=== PATIENT | male | born 1995 | race Caucasian/White ===

== ENCOUNTER 2016-12-12 08:39 | Emergency (ER) | payer OTHER, MEDICAID ==
[~2016-12-12] VITALS: Ht 170.2 cm; Wt 70.0 kg
[~2016-12-12 08:39] MED LIST: ALBUAER3 INH; CLON0.2T PO; CYPR4TAB PO; DEPA500T3 PO; DIPH25CA PO; FLUTI44I INH; LORA10TA PO; METH36 PO; MOME17I EACH NARE; MONT10TA2 PO; NUTR1LIQ PO; RISP1 PO; [UNRECOGNIZED DRUG - CODE] TOPICAL; [UNRECOGNIZED DRUG - CODE] XX; [UNRECOGNIZED DRUG - SUPPLY] XX
[2016-12-12 08:40] VITALS: BP 118/65; PULSE 58; RESP 16; TEMP 97.5; O2SAT 100
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
[2016-12-12] MEDS ORDERED: CLON0.1T PO (09:04)
[2016-12-12] MEDS ORDERED: ROBA500T PO (09:11)
[2016-12-12] MEDS ORDERED: IBUP800T23 PO (09:11)
[2016-12-12] MEDS ORDERED: ZIPR20 PO (09:13)
[2016-12-12] MEDS ORDERED: IBUPROFEN 800 MG TAB PO ONE (09:15)
[2016-12-12] MEDS ORDERED: METHOCARBAMOL 500 MG TAB PO ONE (09:15)
== END 2016-12-12 09:21 | disposition home or self-care (01) ==
LOC: NEPB 08:39
DX: S29.012A Strain of muscle and tendon of back wall of thorax, initial encounter (principal); R25.2 Cramp and spasm; V49.50XA Passenger injured in collision with unspecified motor vehicles in traffic accident, initial encounter
CPT/HCPCS: 99283

== ENCOUNTER → 2017-01-31 | Outpatient (CLI) | payer MEDICAID ==
[~2017-01-31] MED LIST changes: +CLON0.1T PO; -CLON0.2T PO; -DIPH25CA PO; +IBUP800T23 PO; -LORA10TA PO; -NUTR1LIQ PO; +ROBA500T PO; +ZIPR20 PO; -[UNRECOGNIZED DRUG - CODE] XX; -[UNRECOGNIZED DRUG - SUPPLY] XX
--- NOTE | 2017-01-31 12:23 | EKG ---
Date Performed: 01/31/2017 Time Performed: 11:20:26 PTAGE: 21 years EKG: Sinus rhythm BORDERLINE RIGHT AXIS DEVIATION INCOMPLETE RIGHT BUNDLE BRANCH BLOCK BORDERLINE ECG NO PREVIOUS TRACING DOCTOR: Shiva Hudson Interpretating Date/Time 01/31/2017 12:20:02
== END ==
LOC: HECH 11:08
PROVIDERS: ATTEND Psychiatry & Neurology Child & Adolescent Psychiatry
DX: F31.81 Bipolar II disorder (principal); F90.0 Attention-deficit hyperactivity disorder, predominantly inattentive type; F43.10 Post-traumatic stress disorder, unspecified; F41.8 Other specified anxiety disorders; I45.10 Unspecified right bundle-branch block
CPT/HCPCS: 93005

== ENCOUNTER 2017-05-02 11:57 | Emergency (ER) | payer MEDICAID ==
[~2017-05-02] VITALS: Ht 172.7 cm; Wt 70.0 kg
[2017-05-02 12:03] VITALS: BP 144/80; PULSE 54; RESP 16; TEMP 97.7; O2SAT 100
--- NOTE | 2017-05-02 12:16 | PD ---
Physical Exam Time Seen by Provider: 12:14 Narrative 22 y/o male presents with one month of drooling and the sensation of inability to control tongue function. on geodon and depakote for bipolar d/o. Vital signs reviewed. Seen at triage desk. Awaiting bed placement. Data Data Last Documented VS Vital Signs Date Time Temp Pulse Resp B/P Pulse Ox O2 Delivery O2 Flow Rate FiO2 05/02/17 12:03 97.7 54 16 144/[address] [facility] Medical Record Reviewed: Yes Supervised Visit with TATI: Edwin Willett May 02, 2017 12:16
[2017-05-02] MEDS ORDERED: DIVA250ER PO (14:10)
[2017-05-02] MEDS ORDERED: GEOD80CA PO (14:12)
[2017-05-02] MEDS ORDERED: diphenhydrAMINE HCL 50 MG/ML VIAL IV PUSH ONE (14:15)
--- NOTE | 2017-05-02 14:17 | PD ---
HPI Chief Complaint: Oral / Dental Pain or Problem Time Seen by Provider: 14:13 Travel History International Travel<30 days: No Contact w/Intl Traveler<30days: No Traveled to known affect area: No History of Present Illness HPI 22 -year-old male presents to the emergency department for evaluation of inability to control his tongue. He states his been happening intermittently over the past 6 weeks. He states that his tongue will start to roll and he'll drool. He states he does not have control over his tongue when this happened. He has no other symptoms when this occurs. Patient has history of bipolar disorder. He is currently on Geodon and Depakote. Patient denies any headache. No chest pain or shortness of breath. No abdominal pain. No nausea , vomiting, diarrhea. He is not currently on any other medications. Patient has no complaints at this time as he has no symptoms at this time. He states that last happened this morning when he was eating breakfast. PFSH Past Medical History ADHD: Yes Asthma: Yes Bipolar Disorder: Yes Anxiety: Yes Depression: Yes Cancer: No Diabetes: No Gastrointestinal Disorders: Yes Medical other: Yes (INTELLECTUAL DISABILITY) Psychiatric: Yes (ADHD, ANXIETY, BIPOLAR) Respiratory: Yes (ASTHMA) Migraines: No Seizures: No Thyroid Disease: No Ulcer: No ?: Not Past Surgical History Surgical History: No Previous Surgery Appendectomy: No Cholecystectomy: No Social History Alcohol Use: Yes (PT STATES HE HAS ABOUT 1 DRINK A FEW TIMES A MONTH) Tobacco Use: Yes (PT STATES HE SMOKES ABOUT 2 PACKS A WEEK) Substance Use: Yes (PT STATES HE SMOKES MARIJUANA A LOT) Allergies-Medications (Allergen,Severity, Reaction): Coded Allergies: No Known Allergies (Verified , 05/02/17) Reported Meds & Prescriptions Reported Meds & Active Scripts Active Robaxin (Methocarbamol) 500 Mg Tab 500 Mg PO QID PRN Singulair (Montelukast Sodium) 10 Mg Tab 10 Mg PO HS Reported Geodon (Ziprasidone) 80 Mg Cap 80 Mg PO DAILY Depakote ER (Divalproex Sodium) 250 Mg Briana 750 Mg PO DAILY Proair Hfa 8.5 GM Inh (Albuterol Sulfate) 90 Mcg/Act Aer 2 Puff INH Q4H PRN 108 mcg/actuation Flovent Hfa 10.6 GM Inh (Fluticasone Propionate) 44 Mcg/Act Inh 1 Puff INH BID Use daily at the same time. Nasonex Nasal [place] (Mometasone Furoate) 50 Mcg/Act Naspr 1 [place] EACH NARE DAILY Review of Systems Except as stated in HPI: all other systems reviewed are Neg Physical Exam Narrative GENERAL: Well-nourished, well-developed male patient, afebrile. SKIN: Focused skin assessment warm/dry. HEAD: Normocephalic. Atraumatic. EYES: No scleral icterus. No injection or drainage. NECK: Supple, trachea midline. No JVD or lymphadenopathy. CARDIOVASCULAR: Regular rate and rhythm without murmurs, gallops, or rubs. RESPIRATORY: Breath sounds equal bilaterally. No accessory muscle use. Lungs sounds are clear to auscultation. GASTROINTESTINAL: Abdomen soft, non-tender, nondistended. MUSCULOSKELETAL: No cyanosis, or edema. Bilateral upper and lower extremity strength 5/5. All extremities are neurovascularly intact. BACK: Nontender without obvious deformity. No CVA tenderness. NEUROLOGICAL: Awake and alert. Cranial nerves II through XII intact. Motor and sensory grossly within normal limits. Five out of 5 muscle strength in all muscle groups. Normal speech. Finger to nose is normal bilaterally. Heel-to- [place] is normal bilaterally. Data Data Last Documented VS Vital Signs Date Time Temp Pulse Resp B/P Pulse Ox O2 Delivery O2 Flow Rate FiO2 05/02/17 12:03 97.7 54 16 144/80 100 Room Air Orders Iv Access Insert/Monitor (05/02/17 14:09) Complete Blood Count With Diff (05/02/17 14:09) Comprehensive Metabolic Panel (05/02/17 14:09) Diphenhydramine Inj (Benadryl Inj) (05/02/17 14:15) Valproic Acid (Depakene) (05/02/17 14:10) Labs Laboratory Tests Test 05/02/17 14:23 White Blood Count 5.7 TH/MM3 Red Blood Count 4.38 MIL/MM3 Hemoglobin 14.4 GM/DL Hematocrit 44.0 % Mean Corpuscular Volume 100.5 FL Mean Corpuscular Hemoglobin 32.9 PG Mean Corpuscular Hemoglobin 32.8 % Concent Red Cell Distribution Width 13.2 % Platelet Count 184 TH/MM3 Mean Platelet Volume 10.1 FL Neutrophils (%) (Auto) 32.1 % Lymphocytes (%) (Auto) 55.9 % Monocytes (%) (Auto) 10.0 % Eosinophils (%) (Auto) 1.2 % Basophils (%) (Auto) 0.8 % Neutrophils # (Auto) 1.8 TH/MM3 Lymphocytes # (Auto) 3.2 TH/MM3 Monocytes # (Auto) 0.6 TH/MM3 Eosinophils # (Auto) 0.1 TH/MM3 Basophils # (Auto) 0.0 TH/MM3 CBC Comment DIFF FINAL Differential Comment Sodium Level 141 MEQ/L Potassium Level 4.1 MEQ/L Chloride Level 105 MEQ/L Carbon Dioxide Level 28.3 MEQ/L Anion Gap 8 MEQ/L Blood Urea Nitrogen 14 MG/DL Creatinine 0.73 MG/DL Estimat Glomerular Filtration 132 ML/MIN Rate Random Glucose 86 MG/DL Calcium Level 9.3 MG/DL Total Bilirubin 0.6 MG/DL Aspartate Amino Transf 13 U/L (AST/SGOT) Alanine Aminotransferase 28 U/L (ALT/SGPT) Alkaline Phosphatase 56 U/L Total Protein 7.7 GM/DL Albumin 4.1 GM/DL Valproic Acid (Depakene) Level 70 MCG/ML [facility] Medical Decision Making Medical Screen Exam Complete: Yes Emergency Medical Condition: Yes Medical Record Reviewed: Yes Differential Diagnosis Dystonia versus tardive dyskinesia versus reaction to Geodon versus electrolyte abnormality versus Depakote toxicity Narrative Course 22-year-old male presents to the emergency department for evaluation of intermittent tongue rolling and inability to talk that he has no control over that has been intermittent for 6 weeks. Patient is on Geodon and Depakote. Patient has no symptoms or complaints at this time. Neuro exam is unremarkable. Symptoms are most consistent with dystonic reaction to Geodon. Patient CBC, CMP, Depakote level are ordered and pending. Patient is given Benadryl 50 mg IV. CBC shows no acute abnormality. CMP is unremarkable. Depakote level is 70. Patient is instructed to stop Geodon. He is to immediately let his psychiatrist know that he is not able to take Geodon due to dystonic reaction. Patient will be discharged with a prescription for Benadryl. The patient was discharged in stable condition with instructions, including return instructions and follow up instructions. Diagnosis Primary Impression: Dystonia Referrals: Psychiatrist call for appointment Patient Instructions: Extrapyramidal Symptoms (ED), General Instructions Additional Instructions: Take Benadryl as directed as needed. Let your psychiatrist know of your symptoms. Stop Geodon and let your psychiatrist know immediately. Return to the emergency department for any acute, worsening of symptoms. Med/Other Pt SpecificInfo: Prescription(s) given Scripts Diphenhydramine HCl (Benadryl Allergy)25 Mg Cap50 Mg PO Q6HR PRN (EXTRA PYRAMIDAL SYMPTOMS) #28 Prov:Radha Doll 05/02/17 Disposition: 01 DISCHARGE HOME Condition: Stable Radha Doll May 02, 2017 14:17
[2017-05-02 15:06] LABS: AUTOMATED NEUTROPHIL # 1.8 TH/MM3 (1.8-7.7); BASOPHIL % 0.8 % (0.0-2.0); EOSINOPHIL # 0.1 TH/MM3 (0-0.4); EOSINOPHIL % 1.2 % (0.0-4.0); HEMO FLAGS DIFF FINAL; LYMPH % 55.9 % (9.0-44.0); LYMPHOCYTE # 3.2 TH/MM3 (1.0-4.8); MEAN CELL VOLUME 100.5 FL (80.0-100.0); MEAN CORPUSCULAR HEMOGLOBIN 32.9 PG (27.0-34.0); MEAN CORPUSCULAR HGB CONC 32.8 % (32.0-36.0); NEUT % 32.1 % (16.0-70.0); PLATELET COUNT 184 TH/MM3 (150-450); RED BLOOD COUNT 4.38 MIL/MM3 (4.50-5.90); RED CELL DISTRIBUTION WIDTH 13.2 % (11.6-17.2); WHITE BLOOD COUNT 5.7 TH/MM3 (4.0-11.0)
[2017-05-02 15:28] LABS: ALT (GPT) 28 U/L (12-78); ANION GAP 8 MEQ/L (5-15); AST (GOT) 13 U/L (15-37); BICARBONATE 28.3 MEQ/L (21.0-32.0); BLOOD UREA NITROGEN 14 MG/DL (7-18); CHLORIDE 105 MEQ/L (98-107); GLOMERULAR FILTRATION RATE 132 ML/MIN (>89); POTASSIUM 4.1 MEQ/L (3.5-5.1); SODIUM (NA) 141 MEQ/L (136-145)
[2017-05-02 15:29] LABS: ALKALINE PHOSPHATASE 56 U/L (45-117); TOTAL BILIRUBIN ADULT 0.6 MG/DL (0.2-1.0)
[2017-05-02] MEDS ORDERED: BENA25CA4 PO (16:05)
== END 2017-05-02 16:43 | disposition home or self-care (01) ==
LOC: NEPD 11:57
DX: G24.9 Dystonia, unspecified (principal)
CPT/HCPCS: 80053; 80164; 85025; 96374; 99284; J1200

== ENCOUNTER 2018-01-31 11:17 | Inpatient (IN) | payer MEDICAID, OTHER ==
[~2018-01-31] VITALS: Ht 172.7 cm; Wt 58.8 kg
[~2018-01-31 11:17] MED LIST changes: -CLON0.1T PO; -CYPR4TAB PO; -DEPA500T3 PO; +DIVA250T3 PO; -IBUP800T23 PO; -METH36 PO; -RISP1 PO; -ZIPR20 PO; -[UNRECOGNIZED DRUG - CODE] TOPICAL
[2018-01-31 11:32] VITALS: BP 167/101; PULSE 55; RESP 18; TEMP 98.4; O2SAT 98
--- NOTE | 2018-01-31 11:51 | PD ---
HPI . Depression Chief Complaint: Depression Time Seen by Provider: 11:39 Travel History International Travel<30 days: No Contact w/Intl Traveler<30days: No Traveled to known affect area: No History of Present Illness HPI This patient is brought in by his "polo coach" because of depression. History is obtained from both the patient and the polo coach. The patient has a history of mental illness. The polo coach reports that he has been recently noncompliant with his medications. He has been becoming noticeably more depressed over the last several days. The patient denies homicidal or suicidal ideation. Symptoms are exacerbated by the fact that he has not been taking his medications. Symptoms are moderate. They are getting progressively worse. PFSH Past Medical History ADHD: Yes Asthma: Yes Bipolar Disorder: Yes Anxiety: Yes Depression: Yes Cancer: No Diabetes: No Gastrointestinal Disorders: Yes Psychiatric: Yes (ADHD, ANXIETY, BIPOLAR) Respiratory: Yes (ASTHMA) Migraines: No Seizures: No Thyroid Disease: No Ulcer: No Past Surgical History Appendectomy: No Cholecystectomy: No Social History Alcohol Use: Yes (PT STATES HE HAS ABOUT 1 DRINK A FEW TIMES A MONTH) Tobacco Use: Yes (PT STATES HE SMOKES ABOUT 2 PACKS A WEEK) Substance Use: Yes (PT STATES HE SMOKES MARIJUANA A LOT) Allergies-Medications (Allergen,Severity, Reaction): Coded Allergies: ziprasidone (Unverified Allergy, Severe, Lethargy, sharon and mouth twisted , 05/28/17) Reported Meds & Prescriptions Reported Meds & Active Scripts Active Robaxin (Methocarbamol) 500 Mg Tab 500 Mg PO QID PRN Singulair (Montelukast Sodium) 10 Mg Tab 10 Mg PO HS Proair Hfa 8.5 GM Inh (Albuterol Sulfate) 90 Mcg/Act Aer 2 Puff INH Q4H PRN 108 mcg/actuation Flovent Hfa 10.6 GM Inh (Fluticasone Propionate) 44 Mcg/Act Inh 1 Puff INH BID Use daily at the same time. Nasonex Nasal [place] (Mometasone Furoate) 50 Mcg/Act Naspr 1 [place] EACH NARE DAILY Reported Divalproex ER (Divalproex Sodium) 250 Mg Briana 250 Mg PO DIRECTED [facility]. Review of Systems Except as stated in HPI: all other systems reviewed are Neg Psychiatric: Positive: Anxiety, Depression, No: Suicidal Ideations, Disorder of Thought, Homicidal Ideation Physical Exam Narrative GENERAL: Awake and alert and in no acute distress. SKIN: Warm and dry. HEAD: Normocephalic/atraumatic. EYES: Pupils are equal. Extraocular movements are intact. NECK: Normal range of motion. CARDIOVASCULAR: Regular rate and rhythm. RESPIRATORY: Nonlabored respirations. MUSCULOSKELETAL: Atraumatic. NEUROLOGICAL: Nonfocal. PSYCHIATRIC: The patient is tearful. His speech is pressured. He does make occasional eye contact with the examiner. Denies SI/HI. Data Data Last Documented VS Vital Signs Date Time Temp Pulse Resp B/P (MAP) Pulse Ox O2 Delivery O2 Flow Rate FiO2 01/31/18 11:32 98.4 55 18 167/101 (123) 98 Orders Orders Complete Blood Count With Diff (01/31/18 11:46) Comprehensive Metabolic Panel (01/31/18 11:46) Thyroid Stimulating Hormone (01/31/18 11:46) Psych Screen (01/31/18 11:46) Drug Screen, Random Urine (01/31/18 11:46) Valproic Acid (Depakene) (01/31/18 11:52) Labs Laboratory Tests Test 01/31/18 11:52 White Blood Count 6.3 TH/MM3 Red Blood Count 4.59 MIL/MM3 Hemoglobin 14.8 GM/DL Hematocrit 43.9 % Mean Corpuscular Volume 95.6 FL Mean Corpuscular Hemoglobin 32.3 PG Mean Corpuscular Hemoglobin Concent 33.8 % Red Cell Distribution Width 12.6 % Platelet Count 190 TH/MM3 Mean Platelet Volume 9.8 FL Neutrophils (%) (Auto) 57.9 % Lymphocytes (%) (Auto) 33.5 % Monocytes (%) (Auto) 7.8 % Eosinophils (%) (Auto) 0.1 % Basophils (%) (Auto) 0.7 % Neutrophils # (Auto) 3.7 TH/MM3 Lymphocytes # (Auto) 2.1 TH/MM3 Monocytes # (Auto) 0.5 TH/MM3 Eosinophils # (Auto) 0.0 TH/MM3 Basophils # (Auto) 0.0 TH/MM3 CBC Comment DIFF FINAL Differential Comment Blood Urea Nitrogen 18 MG/DL Creatinine 0.81 MG/DL Random Glucose 93 MG/DL Total Protein 8.2 GM/DL Albumin 4.5 GM/DL Calcium Level 9.4 MG/DL Alkaline Phosphatase 68 U/L Aspartate Amino Transf (AST/SGOT) 18 U/L Alanine Aminotransferase (ALT/SGPT) 27 U/L Total Bilirubin 1.3 MG/DL Sodium Level 139 MEQ/L Potassium Level 4.0 MEQ/L Chloride Level 105 MEQ/L Carbon Dioxide Level 26.3 MEQ/L Anion Gap 8 MEQ/L Estimat Glomerular Filtration Rate 117 ML/MIN Thyroid Stimulating Hormone 3rd Gen 0.515 uIU/ML Valproic Acid (Depakene) Level 21 MCG/ML MDM Medical Decision Making Medical Screen Exam Complete: Yes Emergency Medical Condition: Yes Differential Diagnosis Differential diagnosis of depression includes but is not limited to episodic depression, major depression, bipolar disorder, PTSD Narrative Course This patient presents voluntarily for the evaluation of depression. He has a history of mental illness and has been recently noncompliant with medications. He has become increasingly depressed over the last several days. He denies homicidal or suicidal ideation. CBC & BMP Diagram 01/31/18 11:52 Total Protein 8.2, Albumin 4.5, Calcium Level 9.4, Alkaline Phosphatase 68, Aspartate Amino Transf (AST/SGOT) 18, Alanine Aminotransferase (ALT/SGPT) 27, Total Bilirubin 1.3 H Valproic acid level is low at 21 Diagnosis Primary Impression: Medical clearance for psychiatric admission Patient Instructions: General Instructions Condition: Stable Lashonda Mendoza MD Jan 31, 2018 11:51
[2018-01-31 12:27] LABS: AUTOMATED NEUTROPHIL # 3.7 TH/MM3 (1.8-7.7); BASOPHIL % 0.7 % (0.0-2.0); EOSINOPHIL % 0.1 % (0.0-4.0); HEMATOCRIT 43.9 % (39.0-51.0); HEMOGLOBIN 14.8 GM/DL (13.0-17.0); LYMPH % 33.5 % (9.0-44.0); LYMPHOCYTE # 2.1 TH/MM3 (1.0-4.8); MEAN CELL VOLUME 95.6 FL (80.0-100.0); MEAN CORPUSCULAR HEMOGLOBIN 32.3 PG (27.0-34.0); MEAN CORPUSCULAR HGB CONC 33.8 % (32.0-36.0); MEAN PLATELET VOLUME 9.8 FL (7.0-11.0); MONO % 7.8 % (0.0-8.0); MONOCYTE # 0.5 TH/MM3 (0-0.9); NEUT % 57.9 % (16.0-70.0); PLATELET COUNT 190 TH/MM3 (150-450); RED BLOOD COUNT 4.59 MIL/MM3 (4.50-5.90); RED CELL DISTRIBUTION WIDTH 12.6 % (11.6-17.2); WHITE BLOOD COUNT 6.3 TH/MM3 (4.0-11.0)
[2018-01-31 12:39] LABS: ALBUMIN 4.5 GM/DL (3.4-5.0); ALT (GPT) 27 U/L (12-78); AST (GOT) 18 U/L (15-37); BICARBONATE 26.3 MEQ/L (21.0-32.0); BLOOD UREA NITROGEN 18 MG/DL (7-18); CALCIUM 9.4 MG/DL (8.5-10.1); CHLORIDE 105 MEQ/L (98-107); CREATININE 0.81 MG/DL (0.60-1.30); GLOMERULAR FILTRATION RATE 117 ML/MIN (>89); GLUCOSE,RANDOM 93 MG/DL (74-106); SODIUM (NA) 139 MEQ/L (136-145)
[2018-01-31 12:41] LABS: TOTAL BILIRUBIN ADULT 1.3 MG/DL (0.2-1.0); TOTAL PROTEIN 8.2 GM/DL (6.4-8.2)
[2018-01-31 12:49] LABS: ALKALINE PHOSPHATASE 68 U/L (45-117)
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
[2018-01-31 15:54] VITALS: BP 141/77; PULSE 59; RESP 16; TEMP 98.8; O2SAT 99
[2018-01-31] MEDS ORDERED: MAGNESIUM HYDROXIDE SUSP 30 ML CUP PO PRN (16:30)
[2018-01-31] MEDS: NICOTINE 21 MG/24 HR PATCH T-DERMAL SCH (16:30)
[2018-01-31] MEDS ORDERED: hydrOXYzine HCL 50 MG TAB PO PRN (16:30)
[2018-01-31] MEDS ORDERED: ALUMINUM/MAGNESIUM/SIMETH 30 ML CUP PO PRN (16:30)
[2018-01-31] MEDS ORDERED: ACETAMINOPHEN 325 MG TAB PO PRN (16:30)
[2018-01-31] MEDS ORDERED: DIVA250ER PO (16:32)
[2018-01-31 17:00] VITALS: BP 130/71; PULSE 72; RESP 18; TEMP 98.1; O2SAT 97
[2018-01-31] MEDS ORDERED: DIVALPROEX SODIUM E.R. 250 MG TAB PO SCH (20:00)
[2018-02-01 06:10] VITALS: BP 100/58; PULSE 62; RESP 16; TEMP 97.9; O2SAT 97
[2018-02-01] MEDS: REMOVE OLD PATCH T-DERMAL SCH (09:00)
[2018-02-01] MEDS ORDERED: DIVALPROEX SODIUM E.R. 250 MG TAB PO SCH (09:00)
[2018-02-01] MEDS: NICOTINE 21 MG/24 HR PATCH T-DERMAL SCH (09:15)
[2018-02-01] MEDS ORDERED: LORazepam 1 MG TAB PO PRN (14:00)
[2018-02-01] MEDS ORDERED: diphenhydrAMINE HCL 50 MG CAP PO PRN (14:00)
[2018-02-01] MEDS ORDERED: BENZTROPINE MESYLATE 1 MG TAB PO PRN (14:00)
[2018-02-01] MEDS ORDERED: BENZTROPINE MESYLATE 2 MG/2 ML VIAL IM PRN (14:00)
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
[2018-02-01 14:26] LABS: CHOLESTEROL 108 MG/DL (120-200); TRIGLYCERIDES 40 MG/DL (42-150)
[2018-02-01 14:28] LABS: CHOLESTEROL/ HDL RATIO 2.13 RATIO; HDL CHOLESTEROL 50.6 MG/DL (40.0-60.0); LDL CHOLESTEROL 49 MG/DL (0-99)
[2018-02-01] MEDS: BENZTROPINE MESYLATE 1 MG TAB PO SCH (18:00)
[2018-02-01] MEDS: LURASIDONE 40 MG TAB PO SCH (18:00)
[2018-02-01 18:15] VITALS: BP 116/70; PULSE 67; RESP 16; TEMP 97.3; O2SAT 99
[2018-02-02 05:39] VITALS: BP 104/63; PULSE 60; RESP 16; TEMP 97.9; O2SAT 98
[2018-02-02] MEDS: REMOVE OLD PATCH T-DERMAL SCH (08:35)
--- NOTE | 2018-02-02 10:37 | HHI.PYPN ---
Subjective Chief Complaint: Depression Remarks Patient was seen and case discussed with nursing. Patient remains tearful, guilt-ridden and withdrawn. He is minimally interactive during the interview. He is deep into his own thoughts looking away. He denies he had suicidal ideation before admission or having any thoughts today. Seclusive to self. Mental Status Examination Appearance: Appropriate Consciousness: Alert Orientation: x4 Motor Activity: Normal gait Speech: Unremarkable Language: Adequate Fund of Knowledge: Adequate Attention and Concentration: Adequate Memory: Unremarkable Mood: Other (Depressed) Affect: Other (Tearful and dysphoric) Thought Process & Associations: Circumstantial Thought Content: Appropriate Hallucination Type: None Delusion Type: None Suicidal Ideation: No Suicidal Plan: No Suicidal Intention: No Homicidal Ideation: No Homicidal Plan: No Homicidal Intention: No Insight: Fair Judgment: Impulsive Results Labs Test 02/01/18 13:51 Triglycerides Level 40 MG/DL Cholesterol Level 108 MG/DL LDL Cholesterol 49 MG/DL HDL Cholesterol 50.6 MG/DL Cholesterol/HDL Ratio 2.13 RATIO Vitals/IOs Vital Signs Date Time Temp Pulse Resp B/P (MAP) Pulse Ox O2 Delivery O2 Flow Rate FiO2 02/02/18 05:39 97.9 60 16 104/63 (77) 98 01/31/18 15:54 Room Air Assessment & Plan Problem List: (1) Bipolar affective disorder, depressed ICD Codes: F31.30 - Bipolar disorder, current episode depressed, mild or moderate severity, unspecified (2) Borderline intellectual functioning ICD Codes: R41.83 - Borderline intellectual functioning Assessment & Plan Continue current treatment plan Justification for Cont. Inpt. Patient would decompensate in a less restrictive setting Request HC Surrog/Guard Advoc?: No Problem Qualifiers (1) Bipolar affective disorder, depressed: Qualified Codes: F31.32 - Bipolar disorder, current episode depressed, moderate Nomi Torres DO Feb 02, 2018 10:36
[2018-02-02] MEDS: NICOTINE 21 MG/24 HR PATCH T-DERMAL PRN (13:31)
[2018-02-02] MEDS: LURASIDONE 40 MG TAB PO SCH (17:14)
[2018-02-02] MEDS: BENZTROPINE MESYLATE 1 MG TAB PO SCH (17:14)
[2018-02-02 18:22] VITALS: BP 112/66; PULSE 60; RESP 16; TEMP 98.2; O2SAT 99
--- NOTE | 2018-02-03 00:43 | EKG ---
Date Performed: 02/01/2018 Time Performed: 14:04:58 PTAGE: 22 years EKG: SINUS BRADYCARDIA MARKED RIGHT AXIS DEVIATION INCOMPLETE RIGHT BUNDLE BRANCH BLOCK ABNORMAL ECG PREVIOUS TRACING : 01/31/2017 11.20 Compared to previous tracing, now bradycardic DOCTOR: Brian Belcher Interpretating Date/Time 02/03/2018 00:41:00
[2018-02-03 06:34] VITALS: BP 110/56; PULSE 48; RESP 16; TEMP 98.3; O2SAT 97
[2018-02-03 08:57] VITALS: PULSE 70
[2018-02-03] MEDS: REMOVE OLD PATCH T-DERMAL SCH (09:00)
[2018-02-03] MEDS: NICOTINE 21 MG/24 HR PATCH T-DERMAL PRN (10:15)
--- NOTE | 2018-02-03 15:05 | HHI.PYPN ---
Subjective Chief Complaint: Depression Remarks Patient seen and examined with nurse. Chart reviewed. Case discussed with nursing staff. No behavioral issues noted. Case discussed with counselor. On my examination today, patient's affect is considerably brighter versus my previous contact with him. He describes his mood as subjectively improved. He denies any suicidal or homicidal ideation. Denies any audiovisual hallucinations. Decreased guilty ruminations. Denies side effects from medications. He would like to titrate the Latuda. No physical complaints. Review of Systems Except as stated in HPI: all other systems reviewed are Neg Mental Status Examination Appearance: Appropriate Consciousness: Alert Orientation: x4 Motor Activity: Normal gait, Other (No motor abnormalities noted. No hand tremor, no dystonia, no dyskinesia.) Speech: Unremarkable Language: Adequate Fund of Knowledge: Adequate Attention and Concentration: Adequate Memory: Unremarkable Mood: Other (Mood is improving) Affect: Appropriate Thought Process & Associations: Circumstantial Thought Content: Appropriate Hallucination Type: None Delusion Type: None Suicidal Ideation: No Suicidal Plan: No Suicidal Intention: No Homicidal Ideation: No Homicidal Plan: No Homicidal Intention: No Insight: Fair Judgment: Impulsive Results Labs Labs reviewed. Hemoglobin A1c is pending. 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 Titrate Latuda to 60 mg for further mood stabilization. Continue to monitor on inpatient unit. Continue other medications and care as ordered. Justification for Cont. Inpt. Med changes. Risk for decompensation in less restrictive environment. Discharge Planning Pending psychiatric stabilization. Request HC Surrog/Guard Advoc?: No Problem Qualifiers (1) Bipolar affective disorder, depressed: Qualified Codes: F31.32 - Bipolar disorder, current episode depressed, moderate Shiva Barriga MD Feb 03, 2018 15:05
[2018-02-03] MEDS: BENZTROPINE MESYLATE 1 MG TAB PO SCH (16:45)
[2018-02-03] MEDS: LURASIDONE 40 MG TAB PO SCH ×3 (16:45→17:12)
[2018-02-03 16:54] LABS: HEMOGLOBIN A1C 5.4 % (4.3-6.0)
[2018-02-03 17:25] VITALS: BP 121/57; PULSE 61; RESP 16; TEMP 98.4; O2SAT 100
[2018-02-04 05:47] VITALS: BP 104/64; PULSE 60; RESP 16; TEMP 97.9; O2SAT 98
[2018-02-04] MEDS: REMOVE OLD PATCH T-DERMAL SCH (09:00)
--- NOTE | 2018-02-04 09:33 | PD.TTN ---
Patient Problems 1. Discharge planning 2. Medication compliance 3. Knowledge deficit 4. Lack of coping skills Progress Toward Goals Provider Present: Dr. Janny Barriga Provider Input: 02/04/18 - Counselor will contact patient's support mentor, Taurus, from [facility], , to discuss disposition. Psychiatric Counselors Present: MERVAT Mcclendon Psych Therapist Input: 02/04/18 - Counselor will contact Taurus for disposition. Group Spec/RT/OT/HANSEN Present: Parminder Gill OT Group Spec/RT/OT/HANSEN Input: 02/04/18 - Patient attends groups and is appropriate. Discharge Plan [facility] 02/04/18 - Patient will be discharged home when stable and will follow up at [facility] and with Taurus at [facility]. Documentation Scribe: MERVAT Mcclendon Date Resolved: Feb 04, 2018 Sarah Yepez Feb 04, 2018 09:33
[2018-02-04] MEDS: NICOTINE 21 MG/24 HR PATCH T-DERMAL PRN (12:45)
--- NOTE | 2018-02-04 14:08 | HHI.PYPN ---
Subjective Chief Complaint: Depression Remarks Patient seen and examined with nurse. Chart reviewed. Case discussed with nursing staff. No behavioral issues noted overnight although patient was apparently somewhat tearful earlier today. Case discussed in treatment team. Counselor reports that the patient has a sort of life enrichment manager on an outpatient basis who will be visiting the patient this evening to give us her sense of patient's progress. On my examination today, patient is in good spirits. He notes that he is "not worrying about things that do not matter." Mood is improved. He denies AVH. No SI or HI. Denies side effects from medications. No physical complaints. Review of Systems Except as stated in HPI: all other systems reviewed are Neg Mental Status Examination Appearance: Appropriate Consciousness: Alert Orientation: x4 Motor Activity: Normal gait, Other (No abnormal motor movements noted) Speech: Unremarkable Language: Adequate Fund of Knowledge: Adequate Attention and Concentration: Adequate Memory: Unremarkable Mood: Appropriate, Good Affect: Appropriate Thought Process & Associations: Intact Thought Content: Appropriate Hallucination Type: None Delusion Type: None Suicidal Ideation: No Suicidal Plan: No Suicidal Intention: No Homicidal Ideation: No Homicidal Plan: No Homicidal Intention: No Mental Status Exam Remarks Insight and judgment are fair Results Labs Labs reviewed. 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 Patient seems to be improving with this medication. Continue to monitor on the inpatient unit. Continue other medications and care as ordered. Justification for Cont. Inpt. Med change Discharge Planning Possible discharge tomorrow Request HC Surrog/Guard Advoc?: No Problem Qualifiers (1) Bipolar affective disorder, depressed: Qualified Codes: F31.32 - Bipolar disorder, current episode depressed, moderate Shiva Barriga MD Feb 04, 2018 14:08
[2018-02-04 15:20] VITALS: BP 107/59; PULSE 61; RESP 18; TEMP 98.6; O2SAT 99
[2018-02-04] MEDS: BENZTROPINE MESYLATE 1 MG TAB PO SCH (17:09)
[2018-02-04] MEDS: LURASIDONE 40 MG TAB PO SCH (17:09)
[2018-02-05 05:44] VITALS: BP 95/53; PULSE 48; RESP 14; TEMP 97.5; O2SAT 98
[2018-02-05] MEDS: NICOTINE 21 MG/24 HR PATCH T-DERMAL PRN (08:48)
[2018-02-05] MEDS: REMOVE OLD PATCH T-DERMAL SCH (08:48)
--- NOTE | 2018-02-05 10:23 | HHI.PYPN ---
Subjective Chief Complaint: Depression Remarks Patient seen and examined with nurse. Chart reviewed. Case discussed with nursing staff. No behavioral issues noted overnight. Nursing does note the patient was somewhat bradycardic this morning and may have had an irregular pulse. On my examination today, the patient denies any palpitations, chest pain or shortness of breath presently, although he reports he may have experienced some chest discomfort overnight. I have ordered an EKG. Sleep was somewhat poor, but the patient says that he stayed up late to watch a baseball game. He did visit with his life insurance salesperson Taurus yesterday evening but says that the visit was unsatisfying because it seemed like "she did not understand me." He says that they normally have a good working relationship. He says that she called him "delusional." He denies any suicidal or homicidal ideation. Denies any audiovisual hallucinations. Denies side effects from medications. No physical complaints. Patient was hoping to leave the hospital today but would be willing to remain overnight if medical assessment is necessary. Review of Systems Except as stated in HPI: all other systems reviewed are Neg Mental Status Examination Appearance: Appropriate Consciousness: Alert Orientation: x4 Motor Activity: Normal gait, Other (No motoric abnormalities noted) Speech: Unremarkable Language: Adequate Fund of Knowledge: Adequate Attention and Concentration: Adequate Memory: Unremarkable Mood: Appropriate, Good Affect: Appropriate Thought Process & Associations: Intact Thought Content: Appropriate Hallucination Type: None Delusion Type: None Suicidal Ideation: No Suicidal Plan: No Suicidal Intention: No Homicidal Ideation: No Homicidal Plan: No Homicidal Intention: No Mental Status Exam Remarks Insight and judgment are fair Results Labs Labs reviewed. EKG obtained today reviewed. 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 I will consult the hospitalist for assessment. I will also check a BMP to rule out hyperkalemia, listed as a possible differential diagnosis on the EKG. There is no evidence of QTc prolongation, and I do not think it is necessary to hold patient's antipsychotic at this time. Continue to monitor on the inpatient unit. Continue other medications and care as ordered. Justification for Cont. Inpt. Possible complicating condition. Discharge Planning Possible discharge tomorrow pending outcome of hospitalist assessment. Request HC Surrog/Guard Advoc?: No Problem Qualifiers (1) Bipolar affective disorder, depressed: Qualified Codes: F31.32 - Bipolar disorder, current episode depressed, moderate Shiva Barriga MD Feb 05, 2018 10:23
--- NOTE | 2018-02-05 12:15 | EKG ---
Date Performed: 02/05/2018 Time Performed: 10:51:27 PTAGE: 22 years EKG: Sinus rhythm BORDERLINE RIGHT AXIS DEVIATION MODERATE INTRAVENTRICULAR CONDUCTION DELAY TALL T-WAVES, SUGGESTS HY PERKALEMIA ABNORMAL ECG PREVIOUS TRACING : 02/01/2018 14.04 DOCTOR: Ever Stallings Interpretating Date/Time 02/05/2018 12:13:24
[2018-02-05 12:53] VITALS: BP 108/55; PULSE 63; RESP 16; TEMP 98.2; O2SAT 100
[2018-02-05 13:56] LABS: BICARBONATE 29.2 MEQ/L (21.0-32.0); CALCIUM 9.5 MG/DL (8.5-10.1); CREATININE 1.05 MG/DL (0.60-1.30)
--- NOTE | 2018-02-05 15:34 | PD.CONS ---
HPI Service [facility] Consult Requested By Psychiatry Team Reason for Consult Abnormal EKG Primary Care Physician Unknown Diagnoses: History of Present Illness Patient is a 22-year-old male with primary history of ADHD, anxiety, bipolar, asthma who came to the hospital for evaluation of depression. Patient is now admitted to inpatient psychiatry unit for further evaluation. Consulted for abnormal EKG. Patient seen and examined today. Ambulating in the movie room. States he is doing well. States that only medical history that he have his asthma and he has an inhaler for it prior but never really had exacerbations of it. Patient does not know family medical history as he is adopted. Reports only surgical history that he had is tongue surgery were and they have to retract his tongue secondary to tongue protrusion. Admits to smoking about half a pack to a quarter pack a day. Admits to marijuana use. Admits to occasional alcohol use. Otherwise, denies pain and discomfort. Denies cough, SOB/ dyspnea. Denies chest pain, palpitations, headaches, dizziness. Denies fevers, chills, n/ v/d. Denies hematuria, dysuria. Review of Systems Except as stated in HPI: all other systems reviewed are Neg Past Family Social History Allergies: Coded Allergies: ziprasidone (Unverified Allergy, Severe, Lethargy, sharon and mouth twisted , 05/28/17) Past Medical History ADHD Anxiety Bipolar disorder Asthma Past Surgical History Tongue surgery Reported Medications Reported Meds & Active Scripts Active Reported Depakote ER (Divalproex Sodium) 250 Mg Briana 750 Mg PO DAILY Depakote ER (Divalproex Sodium) 250 Mg Briana 250 Mg PO DAILY Active Ordered Medications Current Medications Medications (Trade) Dose Ordered Sig/Patito Route Start Time Stop Time Status Last Admin (Tylenol) 650 mg Q4H PRN PO 01/31/18 16:30 02/05/18 08:51 (Milk Of Magnesia Liq) 30 ml DAILY PRN PO 01/31/18 16:30 (Mag-Al Plus Susp Liq) 30 ml Q6H PRN PO 01/31/18 16:30 Miscellaneous Information 1 DAILY T-DERMAL 02/01/18 09:00 02/05/18 08:48 (Habitrol 21 Mg Patch.24 Hr) 1 patch DAILY PRN T-DERMAL 02/01/18 14:00 02/05/18 08:48 (Ativan) 1 mg Q6H PRN PO 02/01/18 14:00 (Benadryl) 50 mg HS PRN PO 02/01/18 14:00 (Cogentin) 1 mg Q12HR PRN PO 02/01/18 14:00 (Cogentin Inj) 1 mg Q12HR PRN IM 02/01/18 14:00 (Cogentin) 1 mg WITH DINNER PO 02/01/18 18:00 02/04/18 17:09 (Latuda) 80 mg WITH DINNER PO 02/04/18 18:00 02/04/18 17:09 Family History Does not know. Social History Occasional alcohol use Current smoker, wanting to quit,1/4-half a pack per day Marijuana use Physical Exam Vital Signs Vital Signs Date Time Temp Pulse Resp B/P (MAP) Pulse Ox O2 Delivery O2 Flow Rate FiO2 02/05/18 12:53 98.2 63 16 108/55 (72) 100 02/05/18 05:44 97.5 48 14 95/53 (67) 98 Physical Exam GENERAL: This is a thin appearing, well-developed patient, in no apparent distress. SKIN: No rashes, ecchymoses. Cool and dry. Acne scars facial HEAD: Atraumatic. Normocephalic. No temporal or scalp tenderness. EYES: Pupils equal round and reactive. Extraocular motions intact. No scleral icterus. No injection or drainage. ENT: Nose without bleeding. Throat without erythema. Uvula midline. Airway patent. NECK: Trachea midline. CARDIOVASCULAR: Regular rate and rhythm without murmurs, gallops, or rubs. RESPIRATORY: Clear to auscultation. Breath sounds equal bilaterally. No wheezes , rales, or rhonchi. GASTROINTESTINAL: Abdomen soft, non-tender, nondistended. Bowel sounds active 4. MUSCULOSKELETAL: Extremities without clubbing, cyanosis, or edema. NEUROLOGICAL: Awake and alert. Cranial nerves II through XII intact. Motor and sensory grossly within normal limits. Five out of 5 muscle strength in all muscle groups. Normal speech. Laboratory Laboratory Tests Test 02/05/18 13:05 Blood Urea Nitrogen 18 Creatinine 1.05 Random Glucose 74 Calcium Level 9.5 Sodium Level 139 Potassium Level 4.1 Chloride Level 103 Carbon Dioxide Level 29.2 Anion Gap 7 Estimat Glomerular Filtration Rate 87 Result Diagram: 02/05/18 1305 Assessment and Plan Problem List: (1) Bipolar affective disorder, depressed ICD Code: F31.30 - Bipolar disorder, current episode depressed, mild or moderate severity, unspecified Assessment and Plan Patient is a 22-year-old male with primary history of ADHD, anxiety, bipolar, asthma who came to the hospital for evaluation of depression. Patient is now admitted to inpatient psychiatry unit for further evaluation. Consulted for abnormal EKG. Bipolar disorder, depression -Managed by psychiatry team ? Brugada pattern versus Brugada syndrome Abnormal EKG -Recent EKG reviewed, sinus rhythm with right axis deviation moderate intraventricular conduction delay tall T waves suggesting of hyperkalemia. Appears to have right bundle branch. -Compared to previous EKG, notable tall T waves changes. Previous EKG sinus bradycardia with marked right axis deviation, incomplete right bundle branch block -Review of EKG does not show coved pattern or saddleback pattern in V1 and V2 leads -Reviewed labs potassium within normal -Repeat EKG tomorrow. -Patient was started on Latuda recently. Related adverse effect on Latuda because of altered cardiac conduction with arrhythmias. -Patient is a symptomatic. States he is athletic and plays football and basketball. Never had any syncopal episodes or any presyncopal episodes. -Continue to monitor. Tobacco use Underlying asthma -Counseled. -Nicotine patch DVT Prop Code Status Full Code Discussed Condition With Patient, nursing, Dr. Grande Problem Qualifiers (1) Bipolar affective disorder, depressed: Qualified Codes: F31.32 - Bipolar disorder, current episode depressed, moderate Ramila Stanley Feb 05, 2018 15:34
[2018-02-05] MEDS: LURASIDONE 40 MG TAB PO SCH (17:15)
[2018-02-05] MEDS: BENZTROPINE MESYLATE 1 MG TAB PO SCH (17:15)
[2018-02-05 18:31] VITALS: BP 112/65; PULSE 60; RESP 16; TEMP 97.5; O2SAT 100
[2018-02-06 05:26] VITALS: BP 118/58; PULSE 48; RESP 16; TEMP 98.6; O2SAT 99
[2018-02-06] MEDS: REMOVE OLD PATCH T-DERMAL SCH (08:30)
[2018-02-06] MEDS: NICOTINE 21 MG/24 HR PATCH T-DERMAL PRN (08:32)
[2018-02-06] MEDS ORDERED: CARBAMIDE PEROXIDE 6.5% OTIC SOLN 15 ML BTL EACH EAR SCH (09:00)
--- NOTE | 2018-02-06 13:41 | HHI.PR ---
Subjective Remarks Follow-up visit abnormal EKG, ADHD, anxiety, bipolar disorder, asthma. Patient seen and examined today. States he is worried because he played basketball. Denies any presyncopal or syncopal episodes. Denies any chest pain, palpitations, headaches, dizziness. No shortness of breath or dyspnea. Denies fevers, chills, nausea, vomiting, diarrhea. Objective Vitals Vital Signs Date Time Temp Pulse Resp B/P (MAP) Pulse Ox O2 Delivery O2 Flow Rate FiO2 02/06/18 05:26 98.6 48 16 118/58 (78) 99 02/05/18 18:31 97.5 60 16 112/65 (81) 100 Result Diagram: 02/05/18 1305 Objective Remarks GENERAL: This is a thin appearing, well-developed patient, in no apparent distress. SKIN: No rashes, ecchymoses. Cool and dry. Acne scars facial HEAD: Atraumatic. Normocephalic. No temporal or scalp tenderness. EYES: Pupils equal round and reactive. Extraocular motions intact. No scleral icterus. No injection or drainage. ENT: Nose without bleeding. Throat without erythema. Uvula midline. Airway patent. NECK: Trachea midline. CARDIOVASCULAR: Regular rate and rhythm without murmurs, gallops, or rubs. RESPIRATORY: Clear to auscultation. Breath sounds equal bilaterally. No wheezes , rales, or rhonchi. GASTROINTESTINAL: Abdomen soft, non-tender, nondistended. Bowel sounds active 4. MUSCULOSKELETAL: Extremities without clubbing, cyanosis, or edema. NEUROLOGICAL: Awake and alert. Cranial nerves II through XII intact. Motor and sensory grossly within normal limits. Five out of 5 muscle strength in all muscle groups. Normal speech. A/P Problem List: (1) Bipolar affective disorder, depressed ICD Code: F31.30 - Bipolar disorder, current episode depressed, mild or moderate severity, unspecified Assessment and Plan Patient is a 22-year-old male with primary history of ADHD, anxiety, bipolar, asthma who came to the hospital for evaluation of depression. Patient is now admitted to inpatient psychiatry unit for further evaluation. Consulted for abnormal EKG. Bipolar disorder, depression -Managed by psychiatry team Possible Brugada pattern versus Abnormal EKG -Recent EKG reviewed, sinus rhythm with right axis deviation moderate intraventricular conduction delay tall T waves suggesting of hyperkalemia. Appears to have right bundle branch. -Compared to previous EKG, notable tall T waves changes. Previous EKG sinus bradycardia with marked right axis deviation, incomplete right bundle branch block -Review of EKG does not show coved pattern or saddleback pattern in V1 and V2 leads -Reviewed labs potassium within normal -Repeat EKG reviewed by me, sinus bradycardia with incomplete RBBB. No notable cough or saddleback pattern V1 and V2 leads. -Patient is a symptomatic. States he is athletic and plays football and basketball. Never had any syncopal episodes or any presyncopal episodes. -Patient started on Latuda. Previously on Geodon. This medications could affect EKG pattern. -Continue to monitor and outpatient. Recommended to see PCP and have EKGs every 6 months or yearly. Discussed with patient extensively. Tobacco use Underlying asthma -Counseled. -Nicotine patch DVT Prop ambulatory Stable from Hospitalist standpoint. We will sign off. Hospital is clear for discharge follow-up with PCP Discharge Planning Follow-up with PCP EKG every 6 months or yearly. Patient is on psychotropic meds. Problem Qualifiers (1) Bipolar affective disorder, depressed: Qualified Codes: F31.32 - Bipolar disorder, current episode depressed, moderate Ramila Stanley [facility] Feb 06, 2018 13:41
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
[2018-02-06] MEDS ORDERED: LURA80 PO (13:46)
[2018-02-06] MEDS: BENZTROPINE MESYLATE 1 MG TAB PO SCH (17:25)
[2018-02-06] MEDS: LURASIDONE 40 MG TAB PO SCH (17:27)
[2018-02-06 18:45] VITALS: BP 134/59; PULSE 75; RESP 17; TEMP 97.5; O2SAT 99
--- NOTE | 2018-02-07 13:46 | EKG ---
Date Performed: 02/06/2018 Time Performed: 13:02:23 PTAGE: 22 years EKG: SINUS BRADYCARDIA BORDERLINE RIGHT AXIS DEVIATION INCOMPLETE RIGHT BUNDLE BRANCH BLOCK BORD SHELTON ECG PREVIOUS TRACING : 02/05/2018 10.51 Since the previous tracing, no significant change noted DOCTOR: Shiva Hudson Interpretating Date/Time 02/07/2018 13:43:24
== END 2018-02-06 19:25 | disposition home or self-care (01) | DRG 885 ==
LOC: NEPD 11:17 → NEDA 16:16 → H260 16:58
PROVIDERS: ADMIT Psychiatry & Neurology Psychiatry; ATTEND Psychiatry & Neurology Psychiatry
DX: F31.32 Bipolar disorder, current episode depressed, moderate (principal); Z91.14 Patient's other noncompliance with medication regimen; R41.83 Borderline intellectual functioning; J45.909 Unspecified asthma, uncomplicated; F17.210 Nicotine dependence, cigarettes, uncomplicated; F90.9 Attention-deficit hyperactivity disorder, unspecified type; R00.1 Bradycardia, unspecified; I45.10 Unspecified right bundle-branch block
CPT/HCPCS: 80048; 80053; 80061; 80164; 83036; 83735; 84443; 85025; 93005; 99285